=== PATIENT | male | born 1990 | race Caucasian/White ===

== ENCOUNTER 2019-02-28 07:43 | Day surgery (SDC) | payer MEDICAID, SELFPAY ==
[2019-02-28 08:07] VITALS: BP 120/60; PULSE 71; RESP 15; TEMP 36.6; O2SAT 100; BMI 19.5
--- NOTE | 2019-02-28 08:16 | DCINST_ITS ---
You will use the following diet at home:: Regular Discharge Activity: No Restrictions Additional Activity Instructions:: Keep left ear dry. Keep bolster dressing dry. Allergies/Adverse Reactions: Allergies No Known Allergies Allergy (Verified 04/30/15 17:26) Medications to take at Discharge Naproxen [Naprosyn] 500 mg PO BID PRN #20 tablet 04/30/15 Primary Care Physician: Ho Feliciano MD [Primary Care Provider] - Test Results: Test results from this visit will be discussed in further detail at your follow- up appointment, if applicable.
[2019-02-28] MEDS: Bacitracin 500 UNITS/GM PACKET (08:56)
--- NOTE | 2019-02-28 09:04 | PCM.OPRPT ---
Report of Operation Date of Procedure: 02/28/19 Pre-Operative Diagnosis: left auricular hematoma Post-Operative Diagnosis: same Surgery/Procedure Performed:: Incision and drainage left auricular hematoma with bolster placement Description of Surgical Findings:: serous fluid Type of Anesthesia:: Local Estimated Blood Loss (mL): minimal Description of Procedure: The patient was taken to the OR on 02/28/19. He was placed in the supine position on the OR cart. The left ear was prepped and draped steriley. The left ear was injected with 1% lidocaine with epinephrine. After sufficient anesthesia, a stab incision was made in the helical crease with a 15 blade. An iris scissors was used to dissect into the hematoma. The hematoma was drained and the cavity was suctioned of all fluid. I then closed the incision with interrupted 6-0 fast absorbing gut. I fashioned a bolster with dental rolls, one on each side of the pinna (medially and laterally). The bolster was sewn through and through with 3-0 prolene. The procedure was then terminated. He was brought to the holding area in stable condition. blood loss minimal, replacement none. Sponge, needle and instrument count were correct at the end of the procedure.
[2019-02-28 09:20] VITALS: BP 115/73; BP 120/60; PULSE 77; RESP 16; TEMP 36.4; O2SAT 98
== END 2019-02-28 09:26 | disposition home or self-care (01) ==
LOC: SDC 07:46 → AC 07:48
PROVIDERS: Family Provider Family Medicine; PCP Family Medicine; Referring Provider Otolaryngology; Visit Provider Otolaryngology
PROC: (CPT 69005; principal; 2019-02-28 09:05)
DX: H61.122 Hematoma of pinna, left ear (principal); F17.210 Nicotine dependence, cigarettes, uncomplicated
CPT/HCPCS: 69005; J7120; C1876

== ENCOUNTER 2020-08-14 07:12 | Day surgery (SDC) | payer MEDICAID, SELFPAY ==
--- NOTE | 2020-08-13 15:33 | HP.PCM_ITS ---
History and Physical Date of Admission: 08/14/20 HISTORY OF PRESENT ILLNESS 30 year old male presents for evaluation of a soft tissue mass on his right ear.? He noticed it a year ago.? It has enlarged in size over the last several months.? There is some discomfort when it is bumped. ? He denies any trauma to the area. He denies fever.? He denies any drainage.? He denies any recent infection.? He doesn't remember if there was a small mass present when he was younger as a child.? He comes in today for further evaluation and treatment. PAST MEDICAL HISTORY Audie's tubercle Mass of right ear PAST SURGICAL HISTORY No pertinent past surgical history ALLERGIES No Known Allergies MEDICATIONS NK? FAMILY HISTORY Other Asthma CVA (cerebral vascular accident) SOCIAL HISTORY Smoking Status:? Light Smoker (<10/day) alcohol intake:? current substance use type:? does not use PAST MEDICAL HISTORY Audie's tubercle Mass of right ear PAST SURGICAL HISTORY No pertinent past surgical history FAMILY HISTORY Other Asthma CVA (cerebral vascular accident) SOCIAL HISTORY Smoking Status:? Light Smoker (<10/day) alcohol intake:? current substance use type:? does not use REVIEW OF SYSTEMS General - Denies fever, fatigue, and weight loss. Eyes - Denies cataracts and glaucoma. ENT - Denies nasal congestion and sore throat. He has an enlarging cartilaginous mass on his right ear that is mildly painful when it is bumped.? Endocrine - Denies excessive thirst and urination. Skin - Denies skin cancer. Musculoskeletal - Denies joint pain, joint stiffness, weakness of muscles and joints, back pain, and arthritis. Neuro - Denies headaches. Cardiovascular - Denies chest pain, fatigue, and shortness of breath with exertion. Psych - Denies anxiety and depression. Respiratory - Denies chronic cough and shortness of breath.? Patient is a smoker. Gastrointestinal - Denies nausea, vomiting, diarrhea, and constipation. Hematologic - Denies abnormal bruising and bleeding. Genitourinary - Denies hematuria and urinary frequency. PHYSICAL EXAMINATION General - Alert and oriented. HEENT - PERRL. EOMI. Throat is clear.? There is an 8 mm soft tissue mass superior aspect right ear in scapha extending to superior helical rim.? It is firm and clinically appears cartilaginous in nature. Mild discomfort when palpated.? It is adherent to the underlying cartilage. ? This mass is in an area where cartilaginous masses may form as a child and is known as Audie's tubercle.? He doesn't remember having this mass as a young child. Neck - Supple and non-tender.? No cervical adenopathy. Lungs- Clear to auscultation. Heart - Regular rate and rhythm. Abdomen - Soft and non distended. Extremities - FROM. No axillary adenopathy.? Radial pulses are palpable. Neuro - CN II-XII grossly intact. Psych - Normal mood and affect. ASSESSMENT 1.? 8 mm soft tissue cartilaginous mass superior aspect right ear in scapha extending to superior helical rim. 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 3.? Smoker. PLAN This cartilaginous mass can be electively excised and sent to Pathology for analysis to rule out carcinoma.? If this mass is trauma induced with the patient not realizing it since it were multiple mini traumas leading to this cartilaginous growth, at the time of excision some of the tissue will be sent to Microbiology for culture.? A positive culture will necessitate antibiotic therapy. Surgery can be done on an outpatient basis under local anesthesia and IV sed ation. Patient was informed of the risks and complications of the procedure including alternatives to surgery.? These were discussed with the patient personally.? Patient voices understanding and wishes to proceed.? He will let us know when he wants to proceed as he will think about it. Some of the risks and complications were included in a form from the [place] [employer]. Encouraged patient to stop smoking as it may have deleterious effects on wound healing. We discussed the current risks associated with COVID-19. While it is understood that there is a community spread of COVID-19, the risk of malik COVID-19 while at [facility] ([facility]) is very low; however, the risk cannot be completely mitigated because of the community spread of the disease. We di scussed in detail the risk of exposure to and/or potential harm posed by the COVID-19 virus with having a surgery/procedure at this time versus the risk of delaying the surgery/procedure. It is not possible to know either the risk of delaying the surgery or procedure or chance of getting an infection with perfect accuracy, but a joint decision was made to proceed at this time with the scheduled surgery/procedure as indicated on the consent form. Patient was notified that we will need to comply with any screening or testing [facility] wishes to perform or that surgery may be delayed for any positive results. Discussed with the patient that I was tested for COVID-19 on 10/13/19 which was negative and on 10/27/19 which was negative and on 11/10/19 which was negative and on 11/24/19 which was negative and on 12/08/19 which was negative and on 12/29/19 which was negative and on 01/19/20 which was negative and on 02/23/20 which was negative and on 03/15/20 which was negative and on 04/03/20 which was negative. ? My testing regimen at this time is to be COVID-19 tested every 2 weeks or so.? I received the COVID-19 vaccine (Moderna) on 04/11/20 and the second vaccine dose was received on 05/09/20.? I was tested for COVID-19 on 06/11/20 which was negative and on 06/26/20 which was negative and on 07/23/20 which was negative. Procedure Criteria Procedure Type:?Elective COVID Risk Discussion: The surgeon/proceduralist and patient have discussed in detail the risk of exposure to and/or potential harm posed by the COVID-19 virus with having a surgery/procedure at this time versus the risk of delaying the surgery/procedure.? It is not possible to know either the risk of delaying the surgery or procedure or chance of getting an infection with perfect accuracy, but a joint decision was made between the patient and the surgeon/proceduralist to proceed at this time with the scheduled surgery/procedure as indicated on the consent form.
[2020-08-14] VITALS (7 sets, daily range): BP systolic 108–115; BP diastolic 61–69; PULSE 59–76; RESP 16; TEMP 36.1–37; O2SAT 98–100; BMI 19.2
--- NOTE | 2020-08-14 | MASS_PTH ---
PATIENT: BRE DELCID LOC: [facility] [place] U#:[id number] AGE/SX: 30/M ROOM: RE08/14/[address]: Dr. Volodymyr Howell MD : 1990 BED: DIS: 08/14/2020 SPEC #: [id number] RECD: 08/14/20 11:08 STATUS: REBEKAH REQ #: [id number] DAI: 08/14/20 00:[address]: Volodymyr Howell DEPT: SURGICAL PATHOLOGY RECD BY: Bruce Cancino ENTERED: 08/14/20 11:08 SP TYPE: Mass OTHR DR: No Primary Care Phys Tissues: Ear, NOS Procedures: Decalcification bone/plaque Surgery Specimen Level IV HEADER OPERATION: Excision cartilage mass, right ear in scapha by superior helical rim PRE-OP DIAGNOSIS: 8 mm soft tissue/cartilaginous mass superior aspect right ear in scapha extending to superior helical rim TISSUE SUBMITTED: Soft tissue/cartilaginous mass superior aspect right ear MICROSCOPIC DIAGNOSIS Soft tissue/cartilaginous mass of superior right ear, biopsy: Fragments of benign fibrocartilaginous tissue. See comment. FAWN:ameya 08/16/2020 COMMENT Clinical correlation is suggested. MICROSCOPIC DESCRIPTION Slides are reviewed. GROSS DESCRIPTION Received in fixative is one container labeled with the patient's name and designated soft tissue cartilaginous mass right ear. The specimen consists of multiple fragments of riggs, indurated tissue that in aggregate measure 1 x 0.5 x 0.2 cm. There are a few fragments of gritty material. The entire specimen is submitted in one cassette after short decalcification. / SJ:ameya 08/14/20 TC:5 CPT: 66809, 84919
[2020-08-14] MEDS: Lactated Ringers 1,000 ML 100 ML IV (08:07)
[2020-08-14] MEDS: Lidocaine 1% /Epi 1:100 (20ml) 20 ML Vial (09:00)
[2020-08-14] MEDS: Mupirocin Ointment 22gm Tube 1 APPLIC (09:38)
--- NOTE | 2020-08-14 10:11 | OP.PCM_ITS ---
Report of Operation Date of Procedure: 08/14/20 Pre-Operative Diagnosis: 1. 8 mm soft tissue cartilaginous mass superior aspect right ear in scapha extending to superior helical rim. 2. Audie's tubercle. 3. Smoker. Post-Operative Diagnosis: Same. Surgery/Procedure Performed:: Excision and repair 8 mm soft tissue cartilaginous mass superior aspect right ear in scapha extending to superior helical rim. Description of Surgical Findings:: 30 year old male presents for evaluation of a soft tissue mass on his right ear.? He noticed it a year ago.? It has enlarged in size over the last several months.? There is some discomfort when it is bumped. ? He denies any trauma to the area. He denies fever.? He denies any drainage.? He denies any recent infection.? He doesn't remember if there was a small mass present when he was younger as a child.? Patient was informed of the risks and complications of the procedure including alternatives to surgery. These were discussed with the patient personally. Patient voices understanding and wishes to proceed. Some of the risks and complications were included in a form from the [place] [employer]. Encouraged patient to stop smoking as it may have deleterious effects on wound healing. loss prevention supervisor: None Type of Anesthesia: Local MAC (Xylocaine with epinephrine and IV sedation.) Specimen's removed: Soft tissue cartilaginous mass superior aspect right ear in scapha extending to superior helical rim to Pathology and Microbiology. Drains: None. Estimated Blood Loss (mL): 5 ml. Description of Procedure: Patient was taken to OR in supine position and was given IV sedation. The right was prepped and draped in the usual fashion. SCD's were placed for DVT prophylaxis. Perioperative antibiotics were given intravenously. The right ear was infiltrated with a periauricular block using xylocaine and epinephrine. After waiting 5 minutes for the anesthetic to take effect, I made an incision at the junction of the helical rim and the scapha superiorly.? Dissection was carried down to the cartilage.? The abnormal cartilaginous mass was freed up off the skin flap.? As I was dissecting the mass, some thickened fluid was expressed.? It appeared to be a cartilaginous cyst. The cartilaginous cyst sac was then excised to minimize recurrence. Part of the superior helical rim cartilage was involved with the cyst sac and was excised as well to minimize recurrence. The wound was irrigated with saline.? Hemostasis was obtained with gentle pressure and electrocautery.? The cartilaginous mass was sent to Pathology for analysis to rule out carcinoma. ? Some of the cartilaginous tissue was sent to Microbiology for culture.? A positive culture will necessitate antibiotic therapy.? The overlying skin was of good quality and so no skin graft was needed.? The skin flap was then placed back on the wound and secured to the helical rim with 5-0 Monocryl interrupted sutures.? Good ear contour was noted.? Antibiotic ointment was applied to the suture line. Patient tolerated the procedure well and was sent to PACU in satisfactory condition.? Patient will be sent home on antibiotics and pain medication.? He will keep his head elevated during the initial postoperative period.? He will be on a lifting restriction as well. ? Patient will followup in a week for a wound check and for discussion of the pathology report and for discussion of the Microbiology report. Grafts/Implants Used: None. Complications None. Admit VTE Documentation VTE Present on Admission: No VTE Mechan Device Prophylaxis: SCD's VTE Pharm Prophylaxis ordered?: No Addendum Addendum: Surgery Charges CPT - 03140 ICD-10 - H93.8x1, Q17.8, F17.200
--- NOTE | 2020-08-14 10:18 | PCM.DC ---
Discharge Instructions Outpatient Procedure Reason For Visit: EXCISION CARTILAGE MASS RT EAR Diet Discharge Diet: No restrictions Activity Discharge Activity: May Shower (in two days.) and - (no heavy lifting. Keep head elevated.) May shower in (days): 2 May resume sexual activity in: No Restrictions Weight Bearing Status: Weight bearing as tolerated Lifting Restrictions: 20 lbs. Keep extremity elevated above heart level: - (elevate head.) Dressing / Incision Call your doctor if your incision/area has: Continuous Slow Oozing, Sudden Increased Bleeding, Increased Pain/ Swelling, Increased Redness, Foul Smelling Discharge and Swelling at the incision site Call your doctor if you observe: Fever of 101 or Higher, Coldness, Increased Pain, Shortness of breath, Chest pain, Calf discomfort and Uncontrolled pain Suture Line Care: - (apply antibiotic ointment to suture line daily.) Cleanse incision/area with: - (may get incision wet in the shower in two days.) Follow Up Care Please Follow Up With: Volodymyr Howell MD When: one week. call [phone] for appt. Test Results: Test results from this visit will be discussed in further detail at your follow-up appointment, if applicable. Discharge Plan Admission Attending Provider: Volodymyr Howell Primary Care Provider: Care Physician,No Primary Discharge Orders/Prescriptions Prescriptions: New clindamycin HCl 300 mg capsule 300 mg PO TID Qty: 15 RF: 0 oxycodone-acetaminophen [Percocet] 5-325 mg tablet 1 tab PO Q6H PRN (Reason: pain (scale score 7-10)) 5 Days Qty: 20 RF: 0 Referrals: Care Physician,No Primary [Primary Care Provider] -
== END 2020-08-14 11:16 | disposition home or self-care (01) ==
LOC: SDC 07:13 → AC 07:13
PROVIDERS: Referring Provider Surgery; Visit Provider Surgery
PROC: (CPT 69110; principal; 2020-08-14 08:45)
DX: Q17.8 Other specified congenital malformations of ear (principal); Z20.822 Contact with and (suspected) exposure to COVID-19; F17.210 Nicotine dependence, cigarettes, uncomplicated
CPT/HCPCS: 00120; 69110; 87070; 87075; 87102; 87176; 87205; 87206; 87426; 88305; 88311; C9803; J7120; J2405